=== PATIENT | male | born 1955 | race Caucasian/White ===

== ENCOUNTER 2022-04-12 09:50 | Outpatient (CLI) | payer MEDICARE | END 2022-04-12 09:51 | disposition home or self-care (01) | LOC: CSHMRI 09:50 | PROVIDERS: ATTEND Neurological Surgery | DX: M47.816 Spondylosis without myelopathy or radiculopathy, lumbar region (principal); M51.36 Other intervertebral disc degeneration, lumbar region; M48.061 Spinal stenosis, lumbar region without neurogenic claudication | CPT/HCPCS: 72148 ==

== ENCOUNTER 2024-05-30 16:00 | Outpatient (CLI) | payer MEDICARE | END 2024-05-30 16:01 | disposition home or self-care (01) | LOC: CSHSLEEP 16:00 | PROVIDERS: ATTEND Physician Assistant | DX: G47.33 Obstructive sleep apnea (adult) (pediatric) (principal); R53.83 Other fatigue; I25.10 Atherosclerotic heart disease of native coronary artery without angina pectoris; I25.9 Chronic ischemic heart disease, unspecified; I11.9 Hypertensive heart disease without heart failure | CPT/HCPCS: 95811 ==